=== PATIENT | male | born 1950 | race Caucasian/White ===

== ENCOUNTER → 2021-09-26 | Outpatient (CLI) | payer MEDICARE, OTHER ==
[~2021-09-26] MED LIST: ECOTRIN81 MG PO; ELIQUIS2.5 MG PO; HYDROCHLOROTHIA25 MG PO; LOW DOSE ASPIRI81 MG PO; MEN'S 50 PLUS1 EACH PO; NORCO 10-325 T1 EACH PO; TOPROL XL50 MG PO
[2021-09-26 09:43] LABS: HEMOGLOBIN 14.5 gm/dl (14.0-17.5); RED BLOOD COUNT 4.74 M/UL (4.20-5.50); WHITE BLOOD COUNT 7.8 K/UL (4.5-11.0)
[2021-09-26 10:01] LABS: BUN/CREATININE RATIO 15 (0-10)
== END ==
LOC: OPSV2 09:00
PROVIDERS: Orthopaedic Surgery
DX: Z01.818 Encounter for other preprocedural examination (principal); G56.01 Carpal tunnel syndrome, right upper limb
CPT/HCPCS: 36415; 80048; 85025; 93005